=== PATIENT | female | born 1955 | race Caucasian/White ===

== ENCOUNTER 2020-07-16 09:22 | Emergency (ER) | payer MEDICARE, OTHER ==
[~2020-07-16] VITALS: Ht 162.6 cm; Wt 65.8 kg
[2020-07-16 09:50] LABS: BASOPHILS 0.8 % (0.0-2.0); EOSINOPHILS 0.8 % (0.0-3.0); HEMATOCRIT 27.3 % (37.0-47.0); HEMOGLOBIN 8.6 gm/dL (12.0-15.0); LYMPHOCYTES 8.9 % (24.0-44.0); MCH 33.4 pg (26.0-34.0); MCHC 31.3 g/dL (28.0-37.0); MCV 106.7 fL (80.0-100.0); MONOCYTES 3.8 % (1.0-8.0); PLATELET COUNT 296 thou/uL (150-400); POLYS 85.7 % (36.0-66.0); RBC 2.56 mil/uL (4.20-5.00); RDW 16.4 % (10.5-14.5); WBC 9.4 thou/uL (4.0-11.0)
[2020-07-16 09:55] LABS: CALCIUM 9.7 mg/dL (8.5-10.1); CREATININE 11.8 mg/dL (0.6-1.0); POTASSIUM 5.8 mmol/L (3.5-5.1)
[2020-07-16 10:04] LABS: TOTAL BILIRUBIN 0.6 mg/dL (0.2-1.0); TOTAL PROTEIN 8.3 g/dL (6.4-8.2)
[2020-07-16 10:06] LABS: TROPONIN-I 0.72 ng/mL (<0.06)
[2020-07-16 10:40] LABS: BE(vivo) -2.9 mmol/L (-2 to +3); HCO3 20.6 mmol/L (22.0-26.0); PCO2 30.7 mmHg (35.0-45.0); PO2 414.3 mmHg (80.0-100.0); pH 7.445 (7.360-7.450); sO2 99.8 % (92.0-98.0)
[2020-07-16 11:10] LABS: URINE BILIRUBIN NEGATIVE (Negative); URINE BLOOD TRACE (Negative); URINE CLARITY CLEAR; URINE COLOR YELLOW; URINE GLUCOSE-RANDOM* NEGATIVE (Negative); URINE KETONES TRACE (Negative); URINE LEUKOCYTES-REFLEX TRACE (Negative); URINE NITRITE-REFLEX NEGATIVE (Negative); URINE PROTEIN (DIPSTICK) 2+ (Negative); URINE SPECIFIC GRAVITY 1.015 (1.005-1.035); URINE UROBILINOGEN 0.2 E.U./dl (0.2-1.0)
[2020-07-16 11:26] LABS: CASTS None Seen /LPF (None Seen); CRYSTALS None Seen /LPF (None Seen); SQUAMOUS 0-3 Few /LPF (0-3)
[2020-07-16 11:29] LABS: BACTERIA-REFLEX 1-9 Few /HPF (None Seen); RENAL EPITHELIAL CELLS 0-3 Few /LPF (None Seen); URINE RBC 1-2 Rare /HPF (NONE SEEN); URINE WBC-REFLEX 0-5 Rare /HPF (0-5)
--- NOTE | 2020-07-16 11:37 | EKG ---
[place] [address] [facility] [place] [address] ELECTROCARDIOGRAM REPORT Name: VALE PEREZ [id number] Admission: 07/16/20 Attend Phys: Discharge: Date of : 57 Report #: [id number] 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1955 Requested By: Rene Santiago Order Number: [id number] MD: Lit Maurer Measurements Intervals [place] Rate: 123 P: 88 TN: 196 QRS: 36 QRSD: 88 T: 179 QT: 351 QTc: 502 Interpretive Statements Sinus tachycardia Ventricular tachycardia, unsustained Probable LVH with secondary repol abnrm No previous ECG available for comparison Electronically Signed On 07-16-2020 11:36:54 CDT by Lit Maurer [email or web address] <ELECTRONICALLY SIGNED> By: Lit Maurer MD, [facility] 07/16/20 1136 0924 3 Lit Maurer MD, FACC /EPI
[2020-07-16 13:53] LABS: POLYCHROMASIA 1+; SCHISTOCYTES OCCASIONAL; TEARDROPS OCCASIONAL
[2020-07-16 13:54] LABS: TARGET CELLS OCCASIONAL
[2020-07-16 15:15] VITALS: BP 163/62
--- NOTE | 2020-07-16 16:07 | EKG ---
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
== END 2020-07-16 15:15 | disposition short-term general hospital (02) ==
LOC: ER 09:22
PROVIDERS: Emergency Medicine
DX: I46.9 Cardiac arrest, cause unspecified (principal); I62.9 Nontraumatic intracranial hemorrhage, unspecified; R79.89 Other specified abnormal findings of blood chemistry; Z88.0 Allergy status to penicillin; Z88.8 Allergy status to other drugs, medicaments and biological substances